=== PATIENT | female | born 1995 | race Hispanic/Latino ===

== ENCOUNTER 2016-05-30 20:27 | Emergency (ER) | payer OTHER ==
[~2016-05-30] VITALS: Ht 162.6 cm; Wt 61.4 kg
[~2016-05-30 20:27] MED LIST: SULF1TAB35 PO
[2016-05-30 20:46] VITALS: BP 120/72; PULSE 71; RESP 15; O2SAT 100
[2016-05-30 21:16] LABS: Mean Corpuscular Hemoglobin 30.1 pg (27.0-35.0); Mean Corpuscular Volume 89.7 fL (81-100)
[2016-05-30 23:55] VITALS: BP 99/63; PULSE 58; RESP 16; O2SAT 98
--- NOTE | 2016-05-31 00:34 | ED.REPORT ---
HPI-Abd Pain F 2 and Over Date of Service May 31, 2016 ED Provider: Doc,Ed MD Nursing Notes Stated Complaint: CRAMPING, Chief Complaint: & Delivery Allergies: Coded Allergies: No Known Allergies (Verified Allergy, Unknown, 04/19/15) Scheduled Sulfamethoxazole/Trimeth 800-160 mg (Bactrim DS 800-160 mg) 1 Each Tablet 1 TABLET PO BID General Time Seen by MD: 00:41 Physical Exam Initial Vital Signs Vital Signs (First) Date Time Temp Pulse Resp B/P Pulse Ox O2 Delivery O2 Flow Rate FiO2 05/30/16 20:46 36.8 71 15 120/72 100 Room Air Interpretation & Diagnostics Lab Results Interpretation Result Diagram: 05/30/16 21005/30/16 210 Test 05/30/16 21:03 05/30/16 23:48 White Blood Count 7.4th/mm3 (3.8-10.1) Red Blood Count 4.39mil/mm3 (3.90-5.20) Hemoglobin 13.2g/dL (12.0-15.6) Hematocrit 39.4% (35.0-46.0) Mean Corpuscular Volume 89.7fL (81-100) Mean Corpuscular Hemoglobin 30.1pg (27.0-35.0) Mean Corpuscular Hemoglobin Concent 33.5% (32.0-37.0) Red Cell Distribution Width 11.9% (12.3-15.4) Platelet Count 278bil/L (150-400) Sodium Level 138mEq/L (134-144) Potassium Level 3.8mEq/L (3.5-5.2) Chloride Level 100mEq/L (97-108) Carbon Dioxide Level 21mmol/L (18-29) Blood Urea Nitrogen 6mg/dL (6-20) Creatinine 0.68mg/dL (0.57-1.00) Estimat Glomerular Filtration Rate 160mL/min (>59) Glucose Level 86mg/dL (60-99) Calcium Level 9.5mg/dL (8.5-10.1) Total Bilirubin 0.3mg/dL (0.0-1.2) Aspartate Amino Transf (AST/SGOT) 16U/L (0-50) Alanine Aminotransferase (ALT/SGPT) 11U/L (0-32) Alkaline Phosphatase 67U/L (25-150) Total Protein 8.1g/dL (6.4-8.4) Albumin 4.3g/dL (3.4-5.0) HCG Beta Subunit [id number]/mL Hold Garcia Top Tube Received (Received) Urine Color Straw (YELLOW) Urine Appearance Cloudy (CLEAR,HAZY) Urine pH 6.5 (5.0-8.0) Urine Specific [place] 1.015 (1.003-1.035) Urine Protein Negativemg/dL (NEG,TRACE) Urine Glucose (UA) Negativemg/dL (NEGATIVE) Urine Ketones Negativemg/dL (NEGATIVE) Urine Occult Blood Negative (NEGATIVE) Urine Nitrite Negative (NEGATIVE) Urine Bilirubin Negative (NEGATIVE) Urine Urobilinogen Normalmg/dL (NORMAL) Urine Leukocyte Esterase Small (NEGATIVE) Urine RBC 0-2/hpf (0-2) Urine WBC 6-10/hpf (0-5) Urine Epithelial Cells Many/hpf (NONE-MOD) Urine Crystals None seen (NONE SEEN) Urine Bacteria Many/hpf (NONE-FEW) Urine Hyaline Casts None/lpf (NONE) Urine Granular Casts None seen (NONE SEEN) Urine Waxy Casts None seen (NONE SEEN) Urine Red Blood Cell Casts None seen (NONE SEEN) Urine White Blood Cell Casts None seen (NONE SEEN) Urine Mucus None seen (None Seen) Urine Trichomonas None seen (NONE SEEN) Urine Yeast None (NONE SEEN) Urine Culture Reflexed Indicated Chlamydia trachomatis DNA (CHANO) Negative (Negative) Neisseria gonorrhoeae DNA (CHANO) Negative (Negative) Discharge & Departure Referrals: [facility] (PCP) Ej Shepherd MD May 31, 2016 00:34
[2016-05-31 00:45] LABS: APPEARANCE,URINE CLOUDY (CLEAR,HAZY); COLOR,URINE STRAW (YELLOW); OCCULT BLOOD,URINE NEGATIVE (NEGATIVE); PH,URINE 6.5 (5.0-8.0); UROBILINOGEN,URINE NORMAL (NORMAL)
--- NOTE | 2016-05-31 00:45 | ED.REPORT ---
HPI- Female Date of Service May 31, 2016 ED Provider: Darwin Loomis DO This patient is an otherwise healthy 20 year old female who discovered that she was 2 days ago presents to the ED complaining of abdominal cramping that began tonight. She is unsure how far along she is because her and her boyfriend have not been together for 3 weeks and she has "not been taking care of herself". She last had her period 1 month ago. She denies vaginal bleeding or abnormal vaginal discharge. Nursing Notes Stated Complaint: CRAMPING, Chief Complaint: & Delivery Nursing Notes Reviewed: Yes Allergies: Coded Allergies: No Known Allergies (Verified Allergy, Unknown, 04/19/15) Scheduled Sulfamethoxazole/Trimeth 800-160 mg (Bactrim DS 800-160 mg) 1 Each Tablet 1 TABLET PO BID General Time Seen by MD: 00:41 Chief Complaint Abdominal pain... (Cramping) Hx Obtained From: Patient Arrived By: Walk-in Sudden in Onset?: Yes Onset Occurred: Just prior to arrival Symptom Duration: Since onset Location: : Abdomen lower Quality: Cramping, Painful Radiation: Does not radiate Severity: Current: Mild Severity: Maximum: Mild Status: Last NL menst cycle (beginning of April) Sexual History / Control: Reports Pt is sexually active Recent Healthcare: No recent doctor visit, No recent hospitalization Similar Sx Previous: No Past Medical History Past Medical History None reported Past Surgical History None reported Smoking History Unknown if Ever Smoker Social History Other Social History: Good social support, Local resident Ambulatory Status Independent Review of Systems Constitutional: Denies: Chills, Fever GI: Reports: Abdominal pain (Cramping) Female: Reports: , Denies: Vaginal bleeding - abnl, Vaginal discharge Complete sys rev & neg: except as marked. Physical Exam Initial Vital Signs Vital Signs (First) Date Time Temp Pulse Resp B/P Pulse Ox O2 Delivery O2 Flow Rate FiO2 05/30/16 20:46 36.8 71 15 120/72 100 Room Air Initial VS: Reviewed Head / Eyes: Atraumatic, Normocephalic, PERRL ENT: Mucous membranes moist, Conjunctiva normal, No scleral icterus Neck: Supple, Non-tender, Full range of motion Respiratory: Breath sounds normal, Clear to auscultation, No respiratory distress Cardiovascular: Regular rate & rhythm, Heart sounds normal, Intact distal pulses Extremities: Vascular intact, Neuro intact, No swelling, No tenderness Skin: Warm, Dry, No cyanosis Neurologic: Alert, Oriented, Nonfocal Psychiatric: Mood/affect normal, Behavior normal, Normal thought content Female Genitourinary: Exam deferred Abdomen: Soft Tenderness/Guarding/Rebound: Positive: Tender LUQ... Interpretation & Diagnostics Interpretation & Diagnostics: US PELVIS Impression: Single, viable IUP, no complicating features. Radiologist: Janine Mendoza MD 05/31/2016 - 3:41:29 AM PST Lab Results Interpretation Result Diagram: 05/30/16210205/30/162102 Test 05/30/16 21:03 05/30/16 23:48 White Blood Count 7.4th/mm3 (3.8-10.1) Red Blood Count 4.39mil/mm3 (3.90-5.20) Hemoglobin 13.2g/dL (12.0-15.6) Hematocrit 39.4% (35.0-46.0) Mean Corpuscular Volume 89.7fL (81-100) Mean Corpuscular Hemoglobin 30.1pg (27.0-35.0) Mean Corpuscular Hemoglobin Concent 33.5% (32.0-37.0) Red Cell Distribution Width 11.9% (12.3-15.4) Platelet Count 278bil/L (150-400) Sodium Level 138mEq/L (134-144) Potassium Level 3.8mEq/L (3.5-5.2) Chloride Level 100mEq/L (97-108) Carbon Dioxide Level 21mmol/L (18-29) Blood Urea Nitrogen 6mg/dL (6-20) Creatinine 0.68mg/dL (0.57-1.00) Estimat Glomerular Filtration Rate 160mL/min (>59) Glucose Level 86mg/dL (60-99) Calcium Level 9.5mg/dL (8.5-10.1) Total Bilirubin 0.3mg/dL (0.0-1.2) Aspartate Amino Transf (AST/SGOT) 16U/L (0-50) Alanine Aminotransferase (ALT/SGPT) 11U/L (0-32) Alkaline Phosphatase 67U/L (25-150) Total Protein 8.1g/dL (6.4-8.4) Albumin 4.3g/dL (3.4-5.0) HCG Beta Subunit [id number]/mL Hold Garcia Top Tube Received (Received) Urine Color Straw (YELLOW) Urine Appearance Cloudy (CLEAR,HAZY) Urine pH 6.5 (5.0-8.0) Urine Specific [place] 1.015 (1.003-1.035) Urine Protein Negativemg/dL (NEG,TRACE) Urine Glucose (UA) Negativemg/dL (NEGATIVE) Urine Ketones Negativemg/dL (NEGATIVE) Urine Occult Blood Negative (NEGATIVE) Urine Nitrite Negative (NEGATIVE) Urine Bilirubin Negative (NEGATIVE) Urine Urobilinogen Normalmg/dL (NORMAL) Urine Leukocyte Esterase Small (NEGATIVE) Urine RBC 0-2/hpf (0-2) Urine WBC 6-10/hpf (0-5) Urine Epithelial Cells Many/hpf (NONE-MOD) Urine Crystals None seen (NONE SEEN) Urine Bacteria Many/hpf (NONE-FEW) Urine Hyaline Casts None/lpf (NONE) Urine Granular Casts None seen (NONE SEEN) Urine Waxy Casts None seen (NONE SEEN) Urine Red Blood Cell Casts None seen (NONE SEEN) Urine White Blood Cell Casts None seen (NONE SEEN) Urine Mucus None seen (None Seen) Urine Trichomonas None seen (NONE SEEN) Urine Yeast None (NONE SEEN) Urine Culture Reflexed Indicated Pulse Oximetry Interpretation Pulse Oximetry Interpretation: 98% on room air Pulse Oximetry: Pulse Ox normal Re-Eval/Medical Decision Med Decision/Clinical Course Pelvic pain in first trimester . I could not confirm an intrauterine and bedside ultrasound so Roberto the associate professor of art came in. Viable fetus seen on ultrasound. No signs of torsion or ectopic. Her exam was very benign. No signs of appendicitis or cholecystitis on exam. Her urine will be cultured. GC chlamydia sent. Obstetric follow-up recommended. Source of Hx: Old records Re-Evaluation/Progress #1: Time of Eval: 01:13 Re-Evaluation/Progress Note: Pt. rechecked. Did ultrasound but couldn't detect fetus. Told pt. that she'll need vaginal ultrasound and sonogram tech will do so in room. Pt. understands and agrees with plan. All questions have been addressed. Re-Evaluation/Progress #2: Time of Eval: 03:01 Re-Evaluation/Progress Note: Informed the patient of the ultrasound result, with finding of an IUP, 7 weeks and 2 days. Patient understands and agrees with the plan to be discharged home. Discharge instructions and follow-up discussed. All questions were addressed. Return to the ED warnings given. Counseled Regarding: Diagnosis, Lab results, Need for follow-up, When/why to return to ED Discharge & Departure Impression: Primary Impression: Abdominal pain affecting Disposition: Home Discharge Condition All VS Reviewed: Yes Condition: Stable Patient Instructions: Acute Abdominal Pain (GEN), (GEN) Additional Instructions: The ultrasound showed a seven-week viable intrauterine . No signs of an ectopic . You will need close follow-up. Call your doctor as well as the referral import coordinator for evaluation. Tell them that you were seen in the emergency department and diagnosed with a 7 week intrauterine . Start taking a vitamin with thiamine and folic acid. If you have any vaginal bleeding come back to the emergency department. Do not smoke or abuse any drugs whatsoever. Return if any problems or any worsening symptoms. Referrals: [facility] (PCP) Rhonda Britton MD Attestation Portions of this note were transcribed by Beti Campos and Anya Schneider I, Dr. Loomis personally performed the history, physical exam and medical decision-making ; I reviewed and confirmed the accuracy of the information in the transcribed note. Signed by: Beti Campos and Andria Burks, 05/31/2016 and 0410. copies to: [facility]; Rhonda Britton MD, Todd P DO May 31, 2016 00:45 Leidy Campos [Beti] May 31, 2016 00:52 Anya Schneider May 31, 2016 03:05
[2016-05-31 03:31] VITALS: RESP 16
--- NOTE | 2016-05-31 08:34 | DRSVH ---
PROCEDURE: US OB<14 WKS+OB TRANSVAG INDICATIONS: 22k quant, pelvic pain, no IUP on bedside US OUTSIDE/PRIOR DATING DATA: Last menstrual period (LMP): 04/15/16. LMP-based estimated date of delivery (LAYNE): 01/20/17. First dating scan (date and location): 05/31/16, [facility]. Estimated date of delivery (LAYNE) from first dating scan: 01/15/17. TECHNIQUE: Real-time scanning was performed of the fetus and maternal pelvic organs, with image documentation. Endovaginal scanning was also performed to better visualize the fetus and maternal ovaries. COMPARISON: None. FINDINGS: Embryo: [employer] Ultrasound Procedure Report Early Gestation [employer] Rump Length: 1.16 cm Gestational Age (CRL): 7 weeks, 2 days Summary Fetus Summary Heart Rate: 137 bpm Comments: A normal yolk sac is noted. No perigestational bleeds. Measurement variability in dating: +/- 4 weeks by LMP, +/- 7 days by mean sac diameter (use before 6 weeks gestation if crown-rump length not able to be measured), +/- 5 days by crown-rump length (6-12 weeks gestation). Maternal organs: Ovaries have a normal sonographic appearance. Limited images through the kidneys d emonstrate no hydronephrosis. IMPRESSION: Single live intrauterine gestation with a gestational age of 7 weeks, 2 days by crown-rum p length. Approved by: Anjelica Hurtado M.D. on 05/31/2016 at 8:33
[2016-06-06] MEDS ORDERED: CIPR-231 PO (14:45)
== END 2016-05-31 03:32 | disposition home or self-care (01) ==
LOC: SED 20:27 → EDUNIT# 20:27 → SED 05-31 03:32
DX: O99.89 Other specified diseases and conditions complicating pregnancy, childbirth and the puerperium (principal); R10.9 Unspecified abdominal pain; B96.20 Unspecified Escherichia coli [E. coli] as the cause of diseases classified elsewhere; Z3A.01 Less than 8 weeks gestation of pregnancy

== ENCOUNTER 2017-01-17 06:17 | Inpatient (IN) | payer OTHER ==
[~2017-01-17] VITALS: Ht 160 cm; Wt 80.3 kg
[~2017-01-17 06:17] MED LIST changes: +CIPR-231 PO
[2017-01-17] MEDS ORDERED: Methylergonovine 0.2 mg/mL Inj ONE (08:24)
[2017-01-17] MEDS ORDERED: Lactated Ringer's 1,000 ML IV PRN (08:44)
[2017-01-17] MEDS ORDERED: Sodium Chloride LOK Flush 10 mL Syringe IVFLUSH PRN (08:45)
[2017-01-17] MEDS ORDERED: Carboprost 250 mCg/mL Inj IM PRN ×2 (08:45→15:05)
[2017-01-17] MEDS ORDERED: Oxytocin 10 Unit/mL Inj IM PRN ×2 (08:45→15:05)
[2017-01-17] MEDS ORDERED: Methylergonovine 0.2 mg/mL Inj IM PRN ×2 (08:45→15:05)
[2017-01-17] MEDS ORDERED: Oxytocin 30 Units/500 mL LR 30 UNITS in IV Premix 1 EACH IV PRN ×3 (08:45→15:05)
[2017-01-17] MEDS ORDERED: Hemorrhage Kit, Post Partum XX ONE ×2 (08:45→15:05)
[2017-01-17 08:50] LABS: Mean Corpuscular Hemoglobin 30.9 pg (27.0-35.0); Mean Corpuscular Volume 87.8 fL (81-100)
[2017-01-17] MEDS ORDERED: fentaNYL 2 mCg/mL-Bupivicaine 0.125% 100 mL Premix EPIDURAL ONE (09:10)
[2017-01-17] MEDS ORDERED: Lactated Ringer's 500 ML IV ONE (09:12)
[2017-01-17] MEDS: Lactated Ringer's 1,000 ML IV SCH ×4 (09:12→20:49)
[2017-01-17] MEDS ORDERED: EPHEDrine Sulfate 50 mg/mL Inj IVPUSH PRN (09:15)
[2017-01-17] MEDS ORDERED: Ondansetron 2 mg/mL 2 mL Inj IVPUSH PRN ×2 (09:15→19:30)
[2017-01-17] MEDS ORDERED: Atropine 1 mg/10 mL (Code) Syringe IVPUSH PRN (09:15)
[2017-01-17] MEDS ORDERED: fentaNYL 2 mCg/mL-Bupiv 0.125% 100 ML EPIDURAL SCH (09:15)
[2017-01-17] MEDS ORDERED: Phenylephrine/NS-PF 100 mCg/mL 5 mL Syringe IVPUSH PRN (09:15)
--- NOTE | 2017-01-17 09:15 | PCM.HPANE ---
Patient Data Surgeon Admitting Provider:John Guzman MD Attending Provider:John Guzman MD Primary Care Physician:Felisa Boggs MD Other Provider:Doug Baires Anesthesia Reason for Visit Term Labor TERM LABOR Ht/WT & BMI Body Mass Index Allergies Coded Allergies: No Known Allergies (Verified Allergy, Unknown, 04/19/15) Past Anesthesia History Anesthesia History: Denies:: Abnormal Airway, Anesthesia Reactions, Difficult Intubation, Fam Anesthesia Reaction, Fam Malignant Hypertherm, Malignant Hyperthermia Diabetes History Hx Diabetes?: No Medications Hypertension Medication: No Home Meds Incl Beta Izabela: No Active Scripts Sulfamethoxazole/Trimeth 800-160 mg (Bactrim DS 800-160 mg)1 Each Tablet1 Tablet PO BID #10 TABLET Ref 0 Prov:ArguelloLane PAC 04/19/15 Reported Medications Ciprofloxacin (Cipro)500 Mg [id number] Mg PO BID 7 Days Ref 0 06/06/16 History History of ENT Problems?: No HEENT History: Denies:: Abnormal Airway Cataracts Difficult Intubation Dysphagia Glaucoma Hearing Problem Sinus Problem TMJ Denture Type: None Teeth Condition: Within Normal Limits Hx of Heart Problems?: No Cardiovascular History: Denies:: Congestive Heart Failure Hypertension Hx of Respiratory Problem?: No Respiratory History: Denies:: Tuberculosis Hx Neurologic Problems?: No Neurological History: Denies:: CVA Hx of GI Problems?: Yes Gastrointestinal History: Positive for:: Heartburn Hx of Problems?: No Female Hx: Positive for:: Currently Hx Musculoskeletal Problems?: No Hx Surgeries?: No Hx Diabetes: No Hx Alcohol Use: Yes (Has had within last month)Hx Substance Use: Yes (Has used THC within last month) Smoking Status: Unknown if Ever Smoker Have You Smoked inLast 12 mo: No Stop/Bang Treated for Sleep Apnea?: No Do You Have a CPAP Machine?: No KRISTINA Risk Assessment: Low Risk, <3 Yes Risk Assessment Category Category 1A: Patient has history of documented sleep apnea, and HAS NOT received any narcotic, sedative or anesthesia administration during this stay. Category 1B: Patient has history of documented sleep apnea, and HAS received any narcotic , sedative or anesthesia administration during this stay Category 2: Patient has SUSPECTED Obstructive Sleep Apnea, and HAS received any narcotic , sedative or anesthesia administration during this stay. Category 3: Patient has SUSPECTED Obstructive Sleep Apnea and HAS NOT received narcotic, sedative or anesthesia administration during this stay. Category 4: Outpatient in Procedural Areas with known sleep apnea or who screen positive for High Risk via the STOP/BANG questionnaire. Exam Exam General Appearance: Oriented X3 HEENT/AIRWAY: MP 2 Lungs: Normal Air Movement Heart: Regular Rate/Rhythm Meds/Labs/Diagnostics Admission Meds Current Medications Morphine Sulfate (Morphine 10 mg/ mL Syringe) 5 mg ONCE ONCE IM Last administered on 01/17/17t 07:41; Start 01/17/17 at 07:15; Stop 01/17/17 at 07:16; Status DC Labs Test 01/17/17 08:38 White Blood Count 13.4th/mm3 (3.8-10.1) Red Blood Count 4.18mil/mm3 (3.90-5.20) Hemoglobin 12.9g/dL (12.0-15.6) Hematocrit 36.7% (35.0-46.0) Mean Corpuscular Volume 87.8fL (81-100) Mean Corpuscular Hemoglobin 30.9pg (27.0-35.0) Mean Corpuscular Hemoglobin Concent 35.1% (32.0-37.0) Red Cell Distribution Width 12.5% (12.3-15.4) Platelet Count 233bil/L (150-400) Plan Impression Patient chart reviewed, patient interviewed and anesthestic plan with risks, benefits, and alternatives discussed, and informed consent obtained. ASA Physical Status: ASA2 Mod Systemic Disease Anesthetic Plan: Epidural Bene/Risks/Altern/Consents: Yes HP Complete Prior to Induction: Yes Ken Estrella MD Jan 17, 2017 09:14
--- NOTE | 2017-01-17 13:49 | HP ---
[address] [address] HISTORY AND PHYSICAL PATIENT: GLENDA TSE V : 1995 MR#: [id number] ADMIT: 01/17/2017 JOB ID: [id number] CHIEF COMPLAINT: Contractions. HISTORY OF PRESENTING ILLNESS: This is a 21 years old, 1, para 0, at 40 weeks and 2 days gestation with expected date of delivery of January 15, 2017, dated by last menstrual period and consistent with seven weeks ultrasound. The patient presented with regular contractions last night, with no significant cervical change initially. The patient was given morphine and was observed in triage room overnight. Then, the patient had spontaneous rupture of membranes at 8:10 a.m. January 17, 2017. Cervix found to be 5 cm, 90% effaced and -1. The patient reported good movements and no other complaints. complicated with: 1. Late transfer of care from [facility]. 2. History of exposure to alcohol in the first trimester. 3. Varicella nonimmune. 4. History of UTI during x1. Repeat urine culture was negative. GYNECOLOGIC HISTORY: Menarche at age 14. Regular menstrual cycles. Denies history of sexually transmitted infections. PAST MEDICAL HISTORY: Noncontributory. PAST SURGICAL HISTORY: None. SOCIAL HISTORY: Denies smoking, alcohol, or illicit drug abuse. Patient quit tobacco in June 2016. FAMILY HISTORY: Mother is healthy. Father is healthy. Brother healthy. Sister has a cardiac anomaly. Denies family history of twins, cancer. Maternal grandmother has a history of kidney cancer. CONTROL PLAN: NuvaRing. REVIEW OF SYSTEMS: Ten-point review of systems negative except for the items in history of presenting illness. PHYSICAL EXAMINATION: Vital signs: Blood pressure 128/66, heart rate 100, heart rate is 85, respiratory rate 16, temperature 36.8. heart tones baseline 135, moderate variability, positive accelerations, no decelerations. Contractions every 1-2 minutes, regular. General: Alert, oriented to time, place and person. Head: Normocephalic, atraumatic. Neck: Supple. Chest: Equal air entry bilaterally. No added sounds. Cardiovascular: Regular rate and rhythm. Abdomen: Gravid. No tenderness. Estimated weight by ultrasound on January 07, 2017, is 3714 g at 76th percentile, MINGO 9.7. LABORATORIES: LABS: Blood type is O positive. Rubella immune. RPR nonreactive. Hepatitis B surface antigen nonreactive. HIV nonreactive. Antibody screening negative at 11 weeks. Hematocrit 34.6 at 20 weeks. Chlamydia and gonorrhea screening negative on October 02, 2016. Group B strep negative on August 13, 2016. Diabetes screening negative at 20 weeks, was 79. Varicella nonimmune. ADMISSION LABS: White blood cells 13.4, hemoglobin 12.9, hematocrit 36.7%, platelets 233. ASSESSMENT: This is a 21 years old 1, para 0, at 40 weeks and 2 days gestation, in active labor. PLAN: Admit with orders and labs. Anticipate normal vaginal delivery.
[2017-01-17] MEDS ORDERED: Lactated Ringer's 1,000 ML IV SCH (15:03)
[2017-01-17] MEDS ORDERED: Benzocaine (Dermoplast) 20% 60 Gm Spray TOPICAL PRN (15:05)
[2017-01-17] MEDS ORDERED: Witch Hazel-Glycerin Pads TOPICAL PRN (15:05)
[2017-01-17] MEDS ORDERED: Promethazine 50 mg Rectal Suppository RECTAL ONE (15:25)
[2017-01-17] MEDS ORDERED: Ondansetron 2 mg/mL 2 mL Inj IVPUSH ONE (15:25)
[2017-01-17] MEDS ORDERED: Promethazine 25 mg Rectal Suppository RECTAL ONE (15:35)
[2017-01-17] MEDS: LANOlin HPA 7 Gm Ointment TOPICAL PRN (16:19)
[2017-01-17] MEDS: Sodium Chloride LOK Flush 10 mL Syringe IVFLUSH SCH (16:30)
[2017-01-17] MEDS ORDERED: Measles-Mumps-Rubella Vaccine 0.5 mL Inj SUBQ ONE ×3 (17:35→23:03)
[2017-01-17] MEDS: Ascorbic Acid 500 mg Tablet PO SCH (17:58)
--- NOTE | 2017-01-17 18:23 | OP ---
[address] [address] OPERATIVE REPORT PATIENT: GLENDA TSE V : 1995 MR#: [id number] ADMIT: 01/17/2017 JOB ID: [id number] DATE OF SURGERY: 01/17/2017 PREOPERATIVE DIAGNOSIS(ES): Term intrauterine . Spontaneous active labor. Meconium stained amniotic fluid. POSTOPERATIVE DIAGNOSIS(ES): Term intrauterine . Spontaneous active labor. Meconium stained amniotic fluid. PROCEDURE: Spontaneous vaginal delivery and repair of second-degree perineal laceration. ESTIMATED BLOOD LOSS: 400 mL. SURGEON: Felisa Boggs MD. AMBULATORY TECHNOLOGIST: None. COMPLICATIONS: None. OUTCOME: Female delivered in cephalic presentation with loose nuchal cord. Was released before delivery of the shoulders. Apgars 8 and 9. Meconium-stained amniotic fluid. Placenta was delivered spontaneously intact with three-vessel cord. PROCEDURE: This is a 21-year-old 2, para zero, at 40 weeks and 2 days gestation with expected date of delivery of January 15, 2017, dated by last menstrual period and consistent with seven-week ultrasound. The patient presented last night in early labor and she was observed in the triage room after given a dose of morphine. Later this morning, at 8:10 a.m., she had a spontaneous rupture of membranes, light meconium-stained fluid. Cervix found to be 5 cm, 90% and -2 station. The patient was admitted in labor. She was given epidural at 9:22. She progressed in labor spontaneously and found to be completely dilated at 13:58. She pushed effectively to deliver via spontaneous vaginal delivery over an intact perineum at 14:32. Delivered a female infant in cephalic presentation in left occiput anterior position with loose nuchal cord that was released over the occiput. Shoulders delivered without difficulty. Infant was placed on the maternal abdomen. Delayed cord clamping was performed after [address] Del Valle was present in the room for concern of meconium-stained fluid. Cord blood was collected for typing and placenta was delivered spontaneously intact at 14:36. Pitocin was started secondary to initially heavy bleeding. The patient was given a dose of Methergine at 14:40. The uterus noticed to be firming with fundal massage and after giving the Pitocin and the Methergine. The perineum was examined. A second-degree laceration was repaired with 3-0 Vicryl after injection of local anesthesia with 1% lidocaine. The bleeding was minimal at the end of the procedure. All instrument, needles, sponge counts were correct x2. Felisa Boggs MD, was present and scrubbed for the entire procedure. weight is pending at this time.
[2017-01-17] MEDS ORDERED: Ondansetron 8 mg ODT Tablet PO PRN (19:25)
[2017-01-17] MEDS: oxyCODONE-Acetamin 5-325 mg Tablet PO PRN ×2 (20:03→23:57)
[2017-01-18] MEDS: Sodium Chloride LOK Flush 10 mL Syringe IVFLUSH SCH (01:06)
[2017-01-18] MEDS: oxyCODONE-Acetamin 5-325 mg Tablet PO PRN ×2 (04:06→09:18)
[2017-01-18 07:32] LABS: Mean Corpuscular Hemoglobin 30.3 pg (27.0-35.0); Mean Corpuscular Volume 89.6 fL (81-100)
[2017-01-18] MEDS: Ascorbic Acid 500 mg Tablet PO SCH (09:16)
--- NOTE | 2017-01-18 13:01 | PCM.DIOB ---
Obstetrical Disch Instruction Date of Service: Jan 18, 2017 Dates of Hospitalization Date of Hospital Admission Jan 17, 2017 at 08:23 Providers Admitting Physician: John Guzman MD Primary Care Physician: Felisa Boggs MD Attending Physician: John Guzman MD Discharge Diagnosis Discharge Diagnosis PPD#1 S/P , Varicella non-immune, anemia Problems: Diet Discharge Diet: No restrictions Activity Discharge Activity-General: Pelvic Rest for 6 weeks, No lifting >10 pounds for 4-6 weeks Dressing and Incisional Care Hygiene: May shower Follow Up Plan Follow-up Provider (F9): Felisa Boggs MD Follow-up appointment: Weeks (2) Call your provider for: Fever or Chills, Shortness of breath, Heavy vaginal bleeding, Other (excessive pain not controlled with pain medications.) John Guzman MD Jan 18, 2017 13:01
[2017-01-18] MEDS ORDERED: DOCU-41 PO (13:03)
[2017-01-18] MEDS ORDERED: Ascorbic Acid PO (13:03)
[2017-01-18] MEDS ORDERED: IBUP-1827 PO (13:03)
[2017-01-18] MEDS ORDERED: FERR-74 PO (13:03)
[2017-01-18] MEDS ORDERED: OXYC1TAB24 PO (13:03)
--- NOTE | 2017-01-18 13:38 | DIS ---
[address] [address] DISCHARGE SUMMARY PATIENT: GLENDA TSE V : 1995 MR#: [id number] ADMIT: 01/17/2017 JOB ID: [id number] DIS: DATE OF ADMISSION: 01/17/2017, for active labor. Discharged on January 18, 2017, day number one, status post spontaneous vaginal delivery. Varicella nonimmune. For further details, please refer to the fully dictated notes. On the day of discharge patient had no complaints. Voiding, ambulating, tolerating p.o. intake. with no difficulties. Pain controlled with medication. OBJECTIVE: Vital signs are 117/62 for blood pressure, respirations are 20, pulse is 86, temperature 36.0 degrees centigrade. Heart is regular rate and rhythm. Positive S1, S2. Lungs clear to auscultation bilaterally. Abdomen firm. Uterine fundus palpated at the level of the umbilicus. Nontender. Positive bowel sounds. Nondistended abdomen. Perineum: No active bleeding. Lower extremities: No calf tenderness appreciated bilaterally. H and H on day number one was 11.1 and 32.8 and patient was started on iron supplementation. DISCHARGE PLAN: Patient will be discharged home in stable condition. Will follow up with Dr. Boggs in the office in two weeks. Instructed to have nothing in the vagina for six weeks. No heavy lifting more than baby's weight. Instructed to call for fever, chills, severe abdominal pain not controlled with medication, heavy vaginal bleeding, or any other concerning symptoms. The patient requested Percocet for perineal repair pain. DISCHARGE MEDICATIONS: 1. Ibuprofen 600 mg every 6 hours as needed. 2. Percocet one tablet every 8 hours as needed for severe perineal pain. Dispensed 20 tablets. 3. Colace 100 mg twice daily. 4. Ferrous sulfate 325 mg twice daily. 5. Vitamin C 500 mg twice daily. Patient understood the discharge instructions. She will comply with her discharge plan.
[2017-01-18 15:58] VITALS: BP 117/62; PULSE 86; RESP 20
[2017-01-18] MEDS: LANOlin HPA 7 Gm Ointment TOPICAL PRN (16:01)
== END 2017-01-18 17:10 | disposition home or self-care (01) | DRG 775 ==
LOC: FBCO 06:17 → FBC 08:23
PROVIDERS: ADMIT Obstetrics & Gynecology; ATTEND Obstetrics & Gynecology
PROC: 10E0XZZ Delivery of Products of Conception, External Approach (ICD-10-PCS; principal; 2017-01-17)
PROC: 0KQM0ZZ Repair Perineum Muscle, Open Approach (ICD-10-PCS; 2017-01-17)
DX: O69.81X0 Labor and delivery complicated by cord around neck, without compression, not applicable or unspecified (principal); O77.0 Labor and delivery complicated by meconium in amniotic fluid; O70.1 Second degree perineal laceration during delivery; Z3A.40 40 weeks gestation of pregnancy; Z37.0 Single live birth